=== PATIENT | male | born 1935 | race Caucasian/White ===

== ENCOUNTER 2023-05-02 11:29 | Emergency (ER) | payer OTHER ==
[~2023-05-02] VITALS: Ht 188 cm; Wt 54.5 kg
[2023-05-02] MEDS ORDERED: LIDOCAINE 2% 5ML JELLY UROJET TOP ONE (12:30)
[2023-05-02] MEDS ORDERED: ATOR40TA75 (12:54)
[2023-05-02] MEDS ORDERED: TAMS1CAP17 (12:54)
[2023-05-02] MEDS ORDERED: NOVO1INJ4 (12:54)
[2023-05-02] MEDS ORDERED: LISI2.5T9 (12:54)
[2023-05-02] MEDS ORDERED: METF-838 (12:54)
[2023-05-02 14:30] VITALS: BP 162/90; TEMP 98.6; O2SAT 94
[2023-05-02] MEDS ORDERED: CIPR-249 PO (14:30)
== END 2023-05-02 15:12 | disposition home or self-care (01) ==
LOC: M ED 11:29
DX: N39.0 Urinary tract infection, site not specified (principal); R33.9 Retention of urine, unspecified; E11.9 Type 2 diabetes mellitus without complications; N40.1 Benign prostatic hyperplasia with lower urinary tract symptoms; J44.9 Chronic obstructive pulmonary disease, unspecified; F17.200 Nicotine dependence, unspecified, uncomplicated; Z79.02 Long term (current) use of antithrombotics/antiplatelets; Z79.811 Long term (current) use of aromatase inhibitors; Z79.899 Other long term (current) drug therapy